=== PATIENT | female | born 2005 | race Caucasian/White ===

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

== ENCOUNTER 2024-05-28 19:56 | Emergency (ER) | payer MEDICAID ==
[~2024-05-28] VITALS: Ht 162.6 cm; Wt 69.5 kg
[~2024-05-28 19:56] MED LIST: NEOM10SO7 RIGHT EAR
[2024-05-28] MEDS ORDERED: TRAM50TA2 PO (21:38)
[2024-05-28] MEDS: traMADol 50MG tablet PO ONE (21:43)
[2024-05-28 21:46] VITALS: BP 120/80; PULSE 60; RESP 16; TEMP 98.6; O2SAT 99
== END 2024-05-28 21:48 | disposition home or self-care (01) ==
LOC: ER 19:57
DX: N80.9 Endometriosis, unspecified (principal); Z88.0 Allergy status to penicillin; Z88.1 Allergy status to other antibiotic agents; Z79.899 Other long term (current) drug therapy
CPT/HCPCS: 99283

== ENCOUNTER 2024-06-24 18:13 | Emergency (ER) | payer MEDICAID ==
[~2024-06-24] VITALS: Ht 160 cm; Wt 71.1 kg
[~2024-06-24 18:13] MED LIST changes: +TRAM50TA2 PO
[2024-06-24] MEDS: ketorolac trometh 30MG/ML vial 30 MG/ML VIAL IM ONE (19:27)
[2024-06-24] MEDS: ondansetron 4mg rapidly disintigrating tab PO ONE (19:47)
[2024-06-24] MEDS: HYDROcodone/acetaminophen 5mg/325mg tablet PO ONE (19:47)
[2024-06-24 19:53] VITALS: BP 124/64; PULSE 86; RESP 18; TEMP 97.7; O2SAT 99
== END 2024-06-24 19:54 | disposition home or self-care (01) ==
LOC: ER 18:13
DX: N80.8 Other endometriosis (principal); Z88.0 Allergy status to penicillin; Z88.1 Allergy status to other antibiotic agents; Z79.899 Other long term (current) drug therapy
CPT/HCPCS: 96372; 99283; J1885

== ENCOUNTER 2024-06-26 14:47 | Emergency (ER) | payer MEDICAID ==
[~2024-06-26] VITALS: Ht 160 cm; Wt 70.8 kg
[2024-06-26 16:05] LABS: BILIRUBIN,URINE NEGATIVE (Neg); CLARITY,URINE SLIGHTLY CLOUDY (Clear); COLOR,URINE STRAW (Yellow); GLUCOSE, URINE NEGATIVE (Neg); KETONES,URINE NEGATIVE (Neg); LEUKOCYTE ESTERASE ,URINE NEGATIVE (Neg); NITRITES, URINE NEGATIVE (Neg); OCCULT BLOOD,URINE SMALL (Neg); PH,URINE 7.5 (4.8-8.0); PROTEIN,URINE NEGATIVE (Neg); UROBILINOGEN,URINE 0.2 E.U/dL (0.2-1.0)
[2024-06-26 16:07] LABS: UA COLLECTION TYPE CLN CATCH MIDSTREAM
[2024-06-26 16:12] LABS: BACTERIA,URINE NONE SEEN /HPF (Neg); SQUAMOUS EPITHELIAL CELL,UR FEW /LPF (FEW); TRANSITIONAL EPI CELLS,URINE FEW /HPF; WBC,URINE NONE SEEN /HPF (0-4)
[2024-06-26 16:25] LABS: BASOPHILS % (AUTO) 0.5 % (0-1); EOSINOPHILS # (AUTO) 0.1 X10'3 (0-0.9); EOSINOPHILS % (AUTO) 0.5 % (0-6); HEMATOCRIT 44.4 % (35.0-45.0); HEMOGLOBIN 15.2 g/dl (12.0-16.0); LYMPHOCYTES # (AUTO) 3.1 X10'3 (1.1-4.8); LYMPHOCYTES % (AUTO) 30.2 % (21-51); MEAN CORPUSCULAR HEMOGLOBIN 31.4 PG (27.0-31.0); MEAN CORPUSCULAR HGB CONC 34.3 g/dL (33.0-36.5); MEAN CORPUSCULAR VOLUME 91.5 FL (78-98); MONOCYTES # (AUTO) 0.6 X10'3 (0-0.9); MONOCYTES % (AUTO) 5.9 % (2-12); NEUTROPHILS # (AUTO) 6.4 X10'3 (1.8-7.7); NEUTROPHILS % (AUTO) 62.9 % (42-75); PLATELET COUNT 258 X10'3 (140-440); RED BLOOD COUNT 4.85 X10'6 (4.20-5.60); RED CELL DISTRIBUTION WIDTH 13.1 % (11.5-14.5); WHITE BLOOD COUNT 10.2 X10'3 (4.5-11.0)
[2024-06-26] MEDS: ketorolac trometh 15mg/ml vial 15 MG/ML ML IM ONE (16:39)
[2024-06-26] MEDS: HYDROcodone/acetaminophen 10/325mg tab PO ONE (16:40)
[2024-06-26] MEDS ORDERED: HYDR-3965 PO (16:48)
[2024-06-26 16:49] LABS: HCG SERUM QL NEGATIVE
[2024-06-26 16:53] LABS: ALANINE AMINOTRANSFERASE 20 U/L (12-78); ALBUMIN 4.4 G/DL (3.4-5.0); ALBUMIN/GLOBULIN RATIO 1.3 (1.1-1.5); ALKALINE PHOSPHATASE 74 IU/L (20-180); ANION GAP 13 (8-16); ASPARTATE AMINO TRANSFERASE 16 U/L (10-37); BILIRUBIN,TOTAL 0.3 MG/DL (0.1-1.0); BLOOD UREA NITROGEN 8 MG/DL (7-18); BUN/CREATININE RATIO 8.3 (10.0-20.0); CALCIUM 8.9 MG/DL (8.5-10.1); CHLORIDE 105 MMOL/L (99-107); CREATININE 0.96 MG/DL (0.40-0.90); GLUCOSE 104 MG/DL (70-104); LIPASE 25 U/L (16-77); POTASSIUM 4.1 MMOL/L (3.5-5.1); SODIUM 145 MMOL/L (135-145); TOTAL CARBON DIOXIDE 27.4 MMOL/L (24-32); TOTAL PROTEIN 7.7 G/DL (6.4-8.2); eCRCL 78 ML/MIN; eGFR 75 ML/MIN
[2024-06-26 17:16] VITALS: BP 139/78; PULSE 69; RESP 18; TEMP 97.8; O2SAT 98
== END 2024-06-26 17:19 | disposition home or self-care (01) ==
LOC: ER 14:48
DX: N80.9 Endometriosis, unspecified (principal); Z88.0 Allergy status to penicillin; Z88.1 Allergy status to other antibiotic agents; Z88.5 Allergy status to narcotic agent; Z79.899 Other long term (current) drug therapy
CPT/HCPCS: 36415; 80053; 81001; 83690; 84703; 85025; 96372; 99283; J1885; 99284

== ENCOUNTER 2024-07-18 22:27 | Emergency (ER) | payer MEDICAID ==
[~2024-07-18] VITALS: Ht 160 cm; Wt 68.2 kg
[~2024-07-18 22:27] MED LIST changes: +HYDR-3965 PO; -TRAM50TA2 PO
[2024-07-18 23:14] LABS: URINE HCG NEGATIVE (NEG)
[2024-07-18 23:37] LABS: BILIRUBIN,URINE NEGATIVE (Neg); CLARITY,URINE CLEAR (Clear); COLOR,URINE YELLOW (Yellow); GLUCOSE, URINE NEGATIVE (Neg); KETONES,URINE NEGATIVE (Neg); LEUKOCYTE ESTERASE ,URINE NEGATIVE (Neg); NITRITES, URINE NEGATIVE (Neg); OCCULT BLOOD,URINE MODERATE (Neg); PH,URINE 6.5 (4.8-8.0); PROTEIN,URINE NEGATIVE (Neg); UROBILINOGEN,URINE 0.2 E.U/dL (0.2-1.0)
[2024-07-18 23:39] LABS: BASOPHILS # (AUTO) 0.1 X10'3 (0-0.2); BASOPHILS % (AUTO) 0.6 % (0-1); EOSINOPHILS # (AUTO) 0.1 X10'3 (0-0.9); EOSINOPHILS % (AUTO) 0.5 % (0-6); HEMATOCRIT 40.1 % (35.0-45.0); HEMOGLOBIN 14.2 g/dl (12.0-16.0); LYMPHOCYTES # (AUTO) 3.5 X10'3 (1.1-4.8); LYMPHOCYTES % (AUTO) 37.1 % (21-51); MEAN CORPUSCULAR HEMOGLOBIN 31.8 PG (27.0-31.0); MEAN CORPUSCULAR HGB CONC 35.5 g/dL (33.0-36.5); MEAN CORPUSCULAR VOLUME 89.5 FL (78-98); MEAN PLATELET VOLUME 8.9 FL (7.4-10.4); MONOCYTES # (AUTO) 0.7 X10'3 (0-0.9); MONOCYTES % (AUTO) 7.8 % (2-12); NEUTROPHILS # (AUTO) 5.1 X10'3 (1.8-7.7); PLATELET COUNT 268 X10'3 (140-440); RED BLOOD COUNT 4.48 X10'6 (4.20-5.60); RED CELL DISTRIBUTION WIDTH 12.6 % (11.5-14.5); WHITE BLOOD COUNT 9.4 X10'3 (4.5-11.0)
[2024-07-18 23:40] LABS: UA COLLECTION TYPE CLN CATCH MIDSTREAM
[2024-07-18 23:43] LABS: BACTERIA,URINE 1+ /HPF (Neg); SQUAMOUS EPITHELIAL CELL,UR FEW /LPF (FEW); WBC,URINE 0-4 /HPF (0-4)
[2024-07-18 23:47] LABS: ALANINE AMINOTRANSFERASE 14 U/L (12-78); ALBUMIN/GLOBULIN RATIO 1.3 (1.1-1.5); ALKALINE PHOSPHATASE 69 IU/L (20-180); ANION GAP 6 (8-16); ASPARTATE AMINO TRANSFERASE 12 U/L (10-37); BILIRUBIN,TOTAL 0.4 MG/DL (0.1-1.0); BLOOD UREA NITROGEN 12 MG/DL (7-18); BUN/CREATININE RATIO 11.8 (10.0-20.0); CALCIUM 8.3 MG/DL (8.5-10.1); CHLORIDE 105 MMOL/L (99-107); CREATININE 1.02 MG/DL (0.40-0.90); GLUCOSE 105 MG/DL (70-104); LIPASE 22 U/L (16-77); POTASSIUM 3.8 MMOL/L (3.5-5.1); SODIUM 140 MMOL/L (135-145); TOTAL CARBON DIOXIDE 29.1 MMOL/L (24-32); TOTAL PROTEIN 7.1 G/DL (6.4-8.2); eCRCL 73 ML/MIN; eGFR 70 ML/MIN
[2024-07-18] MEDS: normal saline 1000ML IV soln IVB ONE (23:57)
[2024-07-19] MEDS: ketorolac trometh 30MG/ML vial 30 MG/ML VIAL IV ONE (00:09)
[2024-07-19] MEDS: morphine 4 MG/ML inj SYRINge IV ONE (00:31)
[2024-07-19] MEDS: ondansetron/PF 4mg/2ml inj IV ONE (00:35)
[2024-07-19 02:41] VITALS: BP 116/82; PULSE 73; RESP 16; TEMP 98.1; O2SAT 100
== END 2024-07-19 02:36 | disposition home or self-care (01) ==
LOC: ER 22:28
DX: N80.9 Endometriosis, unspecified (principal); N83.209 Unspecified ovarian cyst, unspecified side; Z88.0 Allergy status to penicillin; Z88.1 Allergy status to other antibiotic agents; Z88.5 Allergy status to narcotic agent
CPT/HCPCS: 36415; 76856; 80053; 81001; 81025; 83690; 85025; 93976; 96361; 96374; 96375; 99285; J2270; J2405; J7030

== ENCOUNTER 2024-09-12 14:45 | Emergency (ER) | payer MEDICAID ==
[~2024-09-12] VITALS: Ht 160 cm; Wt 73.4 kg
[~2024-09-12 14:45] MED LIST changes: -HYDR-3965 PO
[2024-09-12 15:19] VITALS: TEMP 99.5
[2024-09-12 16:06] LABS: BASOPHILS % (AUTO) 0.2 % (0-1); EOSINOPHILS % (AUTO) 0.1 % (0-6); HEMATOCRIT 40.4 % (35.0-45.0); HEMOGLOBIN 13.9 g/dl (12.0-16.0); LYMPHOCYTES # (AUTO) 1.3 X10'3 (1.1-4.8); LYMPHOCYTES % (AUTO) 10.1 % (21-51); MEAN CORPUSCULAR HEMOGLOBIN 31.3 PG (27.0-31.0); MEAN CORPUSCULAR HGB CONC 34.3 g/dL (33.0-36.5); MEAN CORPUSCULAR VOLUME 91.1 FL (78-98); MEAN PLATELET VOLUME 9.1 FL (7.4-10.4); MONOCYTES # (AUTO) 0.9 X10'3 (0-0.9); MONOCYTES % (AUTO) 6.8 % (2-12); NEUTROPHILS % (AUTO) 82.8 % (42-75); PLATELET COUNT 246 X10'3 (140-440); RED BLOOD COUNT 4.44 X10'6 (4.20-5.60); RED CELL DISTRIBUTION WIDTH 12.6 % (11.5-14.5); WHITE BLOOD COUNT 13.3 X10'3 (4.5-11.0)
[2024-09-12 17:27] LABS: ALANINE AMINOTRANSFERASE 111 U/L (12-78); ALBUMIN 3.8 G/DL (3.4-5.0); ALBUMIN/GLOBULIN RATIO 1.1 (1.1-1.5); ALKALINE PHOSPHATASE 66 IU/L (20-180); ANION GAP 9 (8-16); ASPARTATE AMINO TRANSFERASE 94 U/L (10-37); BILIRUBIN,TOTAL 0.9 MG/DL (0.1-1.0); BLOOD UREA NITROGEN 6 MG/DL (7-18); BUN/CREATININE RATIO 6.3 (10.0-20.0); CALCIUM 8.8 MG/DL (8.5-10.1); CHLORIDE 104 MMOL/L (99-107); CREATININE 0.96 MG/DL (0.40-0.90); GLUCOSE 101 MG/DL (70-104); LIPASE 17 U/L (16-77); SODIUM 140 MMOL/L (135-145); TOTAL CARBON DIOXIDE 27.4 MMOL/L (24-32); TOTAL PROTEIN 7.3 G/DL (6.4-8.2); eCRCL 78 ML/MIN; eGFR 75 ML/MIN
[2024-09-12] MEDS: normal saline 1000ml 1,000 ML IV ONE (17:45)
[2024-09-12] MEDS: acetaminophen 1,000mg/100ml IV 100 ML IV ONE (17:46)
[2024-09-12] MEDS: ondansetron/PF 4mg/2ml inj IV ONE (17:52)
[2024-09-12] MEDS: ketorolac trometh 15mg/ml vial 15 MG/ML ML IV ONE (17:52)
[2024-09-12 17:59] VITALS: BP 118/61; PULSE 69; RESP 16; O2SAT 100
[2024-09-12 18:18] LABS: URINE HCG NEGATIVE (NEG)
[2024-09-12 18:22] LABS: BILIRUBIN,URINE NEGATIVE (Neg); CLARITY,URINE CLEAR (Clear); COLOR,URINE YELLOW (Yellow); GLUCOSE, URINE NEGATIVE (Neg); KETONES,URINE NEGATIVE (Neg); LEUKOCYTE ESTERASE ,URINE NEGATIVE (Neg); NITRITES, URINE NEGATIVE (Neg); OCCULT BLOOD,URINE TRACE-INTACT (Neg); PH,URINE 6.5 (4.8-8.0); PROTEIN,URINE NEGATIVE (Neg); UROBILINOGEN,URINE 0.2 E.U/dL (0.2-1.0)
[2024-09-12 18:29] LABS: SQUAMOUS EPITHELIAL CELL,UR FEW /LPF (FEW); UA COLLECTION TYPE CLN CATCH MIDSTREAM
[2024-09-12 18:30] LABS: BACTERIA,URINE NONE SEEN /HPF (Neg); RBC,URINE 0-2 /HPF (0-2); WBC,URINE 0-4 /HPF (0-4)
== END 2024-09-12 19:02 | disposition home or self-care (01) ==
LOC: ER 14:46
DX: R10.2 Pelvic and perineal pain (principal); N83.201 Unspecified ovarian cyst, right side; Z88.0 Allergy status to penicillin; Z88.1 Allergy status to other antibiotic agents
CPT/HCPCS: 36415; 76830; 80053; 81001; 81025; 83690; 85025; 93976; 96374; 96375; 99285; J0131; J1885; J2405; J7030

== ENCOUNTER 2024-10-03 06:39 | Outpatient (CLI) | payer OTHER | END 2024-10-03 23:59 | disposition home or self-care (01) | LOC: MRI02 06:39 | PROVIDERS: ATTEND Podiatrist Foot & Ankle Surgery | DX: S82.862A Displaced Maisonneuve's fracture of left leg, initial encounter for closed fracture (principal); S93.432A Sprain of tibiofibular ligament of left ankle, initial encounter; M25.472 Effusion, left ankle; Q66.30 Other congenital varus deformities of feet, unspecified foot; X58.XXXA Exposure to other specified factors, initial encounter; Y93.89 Activity, other specified; Y92.89 Other specified places as the place of occurrence of the external cause; Y99.8 Other external cause status | CPT/HCPCS: 73721 ==